=== PATIENT | female | born 1970 ===

== ENCOUNTER 2024-10-08 07:25 | Day surgery (SDC) | payer MEDICARE, OTHER ==
[~2024-10-08] VITALS: Ht 175.3 cm; Wt 97.4 kg
[2024-10-08] MEDS ORDERED: Lactated Ringer's 1,000 ML IV ONE ×2 (07:56→08:38)
[2024-10-08] MEDS ORDERED: DULOXETINE HCL60 M1 (08:04)
[2024-10-08] MEDS ORDERED: DIGESTIVE WELL1 EACH (08:07)
[2024-10-08] MEDS ORDERED: SENN187 (08:07)
[2024-10-08] MEDS ORDERED: LYRICA100 M1 (08:08)
[2024-10-08] MEDS ORDERED: IRON BISGLYCINA28 MG (08:08)
[2024-10-08] MEDS ORDERED: [UNRECOGNIZED DRUG - CODE] (08:12)
[2024-10-08] MEDS ORDERED: OMEGA ESSENTIA240 ML (08:12)
[2024-10-08] MEDS ORDERED: HAIR, SKIN AND1 EAC3 (08:13)
[2024-10-08] MEDS ORDERED: TRAM50 (08:13)
[2024-10-08] MEDS ORDERED: PRILOSEC OTC20 MG (08:13)
[2024-10-08] MEDS ORDERED: CYMBALTA60 M1 (08:14)
[2024-10-08] MEDS ORDERED: Acetaminophen650 M1 (08:14)
[2024-10-08] MEDS ORDERED: ERGO400 (08:15)
[2024-10-08] MEDS ORDERED: CALCIUM MAGNES1 EAC1 (08:15)
[2024-10-08] MEDS ORDERED: C COMPLEX1000 M1 (08:15)
[2024-10-08] MEDS ORDERED: METO10SY (08:16)
[2024-10-08] MEDS ORDERED: METO5A (08:16)
[2024-10-08] MEDS ORDERED: propofoL 50 ML IV ONE ×2 (08:54→09:23)
== END 2024-10-08 10:08 | disposition home or self-care (01) ==
LOC: ORSCSDS 07:25
DX: K31.84 Gastroparesis (principal); D12.3 Benign neoplasm of transverse colon; K63.89 Other specified diseases of intestine; R13.10 Dysphagia, unspecified; Z86.0100 Personal history of colon polyps, unspecified; R19.4 Change in bowel habit; G35 Multiple sclerosis; G47.33 Obstructive sleep apnea (adult) (pediatric); K21.9 Gastro-esophageal reflux disease without esophagitis; E66.9 Obesity, unspecified; Z68.31 Body mass index [BMI] 31.0-31.9, adult; Z79.899 Other long term (current) drug therapy; Z87.891 Personal history of nicotine dependence
CPT/HCPCS: 88305; J2704; J7120